=== PATIENT | female | born 1970 | race Caucasian/White ===

== ENCOUNTER 2017-03-08 23:25 | Emergency (ER) | payer OTHER ==
[~2017-03-08 23:25] MED LIST: ISOVUE-370 76%-LOCM 1 ML ONE
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
[2017-03-09] MEDS ORDERED: Ketorolac Tromethamine 30 MG/ML VIAL ONE (00:42)
[2017-03-09] MEDS ORDERED: Morphine 2 MG/ML SYRINGE ONE (00:42)
== END 2017-03-09 03:06 | disposition home or self-care (01) ==
LOC: ERS 23:25
DX: S32.039A Unspecified fracture of third lumbar vertebra, initial encounter for closed fracture (principal); S32.049A Unspecified fracture of fourth lumbar vertebra, initial encounter for closed fracture; S32.059A Unspecified fracture of fifth lumbar vertebra, initial encounter for closed fracture; S34.102A Unspecified injury to L2 level of lumbar spinal cord, initial encounter; F17.210 Nicotine dependence, cigarettes, uncomplicated; V89.2XXA Person injured in unspecified motor-vehicle accident, traffic, initial encounter; W22.10XA Striking against or struck by unspecified automobile airbag, initial encounter; Y92.411 Interstate highway as the place of occurrence of the external cause
CPT/HCPCS: 70450; 71260; 72125; 74177; 96374; 96375; G0390; J1885; J2270